=== PATIENT | female | born 1960 | race Caucasian/White ===

== ENCOUNTER 2017-01-20 05:30 | Day surgery (SDC) | payer BC ==
[~2017-01-20] VITALS: Ht 165.1 cm; Wt 49.0 kg
[~2017-01-20 05:30] MED LIST: ACIDOPHILUS PO; ALEVE220 M2 PO; ALLEGRA ALLERG180 MG PO; ELIDEL 1% CREAM30 GM TP; FISH OIL 1,2001 EAC3 PO; KENALOG,ARISTOC80 GM TP; LEVBID0.375 MG PO; LYRICA50 MG PO; NASONEX17 GM BOTH NARES; PATANASE30.5 GM BOTH NARES; PREMARIN VAGI42.5 GM TP; SELENIUM200 MCG PO; STOOL SOFTENER100 MG PO; VITAMIN D32000 UNI1 PO; ZOFRAN ODT4 MG PO; ZOFRAN4 MG PO
[2017-01-20 06:13] VITALS: BP 134/72
[2017-01-20] MEDS ORDERED: MOTRIN600 MG PO (09:05)
[2017-01-20] MEDS ORDERED: NORCO 5/3251 TABLET PO (09:05)
[2017-01-20 09:29] VITALS: BP 121/70
[2017-01-20 10:30] VITALS: BP 122/69
== END 2017-01-20 10:45 | disposition home or self-care (01) ==
LOC: SDC 05:30
PROC: 0WUF0JZ Supplement Abdominal Wall with Synthetic Substitute, Open Approach (ICD-10-PCS; principal; 2017-01-20)
DX: K43.2 Incisional hernia without obstruction or gangrene (principal); K58.9 Irritable bowel syndrome, unspecified; N94.6 Dysmenorrhea, unspecified; Z88.2 Allergy status to sulfonamides; Z82.49 Family history of ischemic heart disease and other diseases of the circulatory system; Z82.5 Family history of asthma and other chronic lower respiratory diseases; Z80.1 Family history of malignant neoplasm of trachea, bronchus and lung
CPT/HCPCS: C1781; J0131; J0690; J1100; J2250; J2405; J3010; S0020

== ENCOUNTER 2017-11-03 08:04 | Day surgery (SDC) | payer BC ==
[~2017-11-03] VITALS: Ht 160 cm; Wt 50.3 kg
[~2017-11-03 08:04] MED LIST changes: +ACIDOPHILUS1 EAC3 PO; +MAGNESIUM OXID200 MG PO; +MOTRIN600 MG PO; +NORCO 5/3251 TABLET PO; +VOLTAREN 1% GE100 GM TP; +XIIDRA1 EACH BOTH EYES
[2017-11-03 08:40] VITALS: BP 153/65
[2017-11-03] MEDS ORDERED: NORCO 5/3251 TABLET PO (12:10)
[2017-11-03 12:45] VITALS: BP 117/59
[2017-11-03 13:55] VITALS: BP 117/64
== END 2017-11-03 14:30 | disposition home or self-care (01) ==
LOC: SDC 08:04
DX: K43.2 Incisional hernia without obstruction or gangrene (principal); K66.0 Peritoneal adhesions (postprocedural) (postinfection); N94.6 Dysmenorrhea, unspecified; K58.9 Irritable bowel syndrome, unspecified; E03.9 Hypothyroidism, unspecified; M79.7 Fibromyalgia; Z90.49 Acquired absence of other specified parts of digestive tract; Z82.49 Family history of ischemic heart disease and other diseases of the circulatory system; Z80.1 Family history of malignant neoplasm of trachea, bronchus and lung; Z80.8 Family history of malignant neoplasm of other organs or systems; Z82.5 Family history of asthma and other chronic lower respiratory diseases; Z88.5 Allergy status to narcotic agent; Z88.2 Allergy status to sulfonamides; Z88.1 Allergy status to other antibiotic agents; Z91.018 Allergy to other foods; Z91.041 Radiographic dye allergy status
CPT/HCPCS: C1781; J0690; J1100; J1885; J2250; J2405; J2710; J3010; Q0175; S0020